=== PATIENT | female | born 2005 | race Two or more races ===

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

== ENCOUNTER 2024-08-26 03:09 | Emergency (ER) | payer SELFPAY ==
[2024-08-26 03:25] VITALS: RESP 16; BMI 26.6
[2024-08-26] MEDS ORDERED: ONDANSETRON 4 MG/2 ML VIAL ONE (04:46)
[2024-08-26] MEDS ORDERED: ACETAMINOPHEN INJECTION 100 ML ONE (04:46)
[2024-08-26] MEDS: ACETAMINOPHEN 1000 MG/100 ML BAG IVPB ONE (05:06)
[2024-08-26] MEDS: ONDANSETRON 4 MG/2 ML VIAL IVPB ONE (05:07)
[2024-08-26 05:44] LABS: ALBUMIN 4.2 g/dl (3.4-5.0); CALCIUM 9.2 mg/dL (8.5-10.1); MAGNESIUM 2.1 mg/dL (1.8-2.4)
[2024-08-26 05:46] LABS: BASO % 0.9 % (0-2.0); HEMATOCRIT 40.2 % (32.4-45.2); MCH 29.8 pg (25.7-33.7); MCHC 32.3 g/dl (32.0-36.0); MEAN CELL VOLUME 92.4 fl (80-96); MEAN PLT VOLUME 9.8 fl (7.5-11.1); MONO % 7.8 % (3.8-10.2); NEUT % 62.3 % (42.8-82.8); PLATELET COUNT 201 10^3/uL (134-434); RBC 4.35 M/mm3 (3.60-5.2); RDW 12.9 % (11.6-15.6); WHITE BLOOD COUNT 5.3 K/mm3 (4.0-10.0)
[2024-08-26 05:47] LABS: CREATININE 0.6 mg/dL (0.55-1.3)
[2024-08-26 05:49] LABS: BILIRUBIN,TOTAL 0.5 mg/dL (0.2-1); TOT PROT 6.7 g/dl (6.4-8.2)
[2024-08-26 06:23] LABS: URINE APPEARANCE CLEAR; URINE BILIRUBIN NEGATIVE (NEGATIVE); URINE COLOR YELLOW; URINE GLUCOSE (UA) NEGATIVE (NEGATIVE); URINE KETONE TRACE (NEGATIVE); URINE LEUK ESTERASE NEGATIVE (NEGATIVE); URINE NITRITE NEGATIVE (NEGATIVE); URINE PROTEIN NEGATIVE (NEGATIVE); URINE UROBILINOGEN 0.2 mg/dL (0.2-1.0)
[2024-08-26 06:27] VITALS: BP 110/68; PULSE 76; TEMP 98.3
[2024-08-26 06:45] LABS: HIV INTERPRETATION NEGATIVE (NEGATIVE)
[2024-08-26 07:36] LABS: INR 1.17 (0.83-1.09); PROTHROMBIN TIME (PATIENT) 13.4 SEC (9.7-13.0)
[2024-08-26 07:39] LABS: ACTIVATED PTT 33.3 SECONDS (25.2-36.5)
== END 2024-08-26 08:03 | disposition left against medical advice (07) ==
LOC: JER 03:09
PROC: 3E033NZ Introduction of Analgesics, Hypnotics, Sedatives into Peripheral Vein, Percutaneous Approach (ICD-10-PCS; principal; 2024-08-26)
PROC: 3E033GC Introduction of Other Therapeutic Substance into Peripheral Vein, Percutaneous Approach (ICD-10-PCS; 2024-08-26)
DX: R11.2 Nausea with vomiting, unspecified (principal); R10.32 Left lower quadrant pain; R19.7 Diarrhea, unspecified
CPT/HCPCS: 0241U-QW; 36415; 80053; 81003; 83690; 83735; 84703; 85025; 85610; 85730; 86803; 86850; 86900; 86901; 87086; 87389; 99284-25; J0131